=== PATIENT | male | born 1975 | race Caucasian/White ===

== ENCOUNTER 2021-02-22 17:00 | Emergency (ER) | payer BC ==
[2021-02-22] MEDS ORDERED: Ketorolac 60 MG/2 ML SDV IM ONE (17:14)
[2021-02-22] MEDS ORDERED: Acetaminophen/HYDROcodone 325-10 MG Tab PO ONE (17:14)
--- NOTE | 2021-02-22 17:23 | EDM.PDOC ---
ED HPI GENERAL MEDICAL PROBLEM - General Chief Complaint: ENT Problem Stated Complaint: TOOTH PAIN Time Seen by Provider: 02/22/21 17:05 Source of Information: Reports: Patient, Family History Limitations: Reports: No Limitations - History of Present Illness INITIAL COMMENTS - FREE TEXT/NARRATIVE: 46 YO WM PRESENTS TO ER COMPLAINING OF TOOTHACHE WHICH BEGAN 4 DAYS AGO. PT REPORTS PAIN AND MILD SWELLING TO RIGHT MANDIBLE. PT DENIES NECK PAIN, HEADACHE OR FEVER/CHILLS. PT REPORTS HE WAS PRESCRIBED ANTIBIOTICS WHICH HE STARTED TODAY BUT WAS UNABLE TO GET PAIN MEDICATION PROMPTING ER EVALUATION. 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, NSAIDS, Other Medication(s) - Related Data Allergies Allergy/AdvReac Type Severity Reaction Status Date / Time codeine Allergy Vomiting Verified 01/14/18 17:33 Home Meds: Home Meds Omeprazole [Prilosec] 20 mg PO DAILY 03/03/15 [History] Hydrocodone/Acetaminophen [HYDROcodone-Acetaminophen 10-325 MG] 1 each PO Q4HR PRN #10 tablet 02/22/21 [Rx] Past Medical History Oncologic (Cancer) History: Reports: Other (See Below) Other Oncologic History: testicular - Past Surgical History GI Surgical History: Reports: Hernia, Inguinal Social & Family History - Living Situation & Occupation Living situation: Reports: , Other Occupation: Employed ED ROS ENT - Review of Systems Review Of Systems: See Below Constitutional: Reports: No Symptoms HEENT: Reports: Dental Pain Respiratory: Reports: No Symptoms Cardiovascular: Reports: No Symptoms Endocrine: Reports: No Symptoms GI/Abdominal: Reports: No Symptoms : Reports: No Symptoms Musculoskeletal: Reports: No Symptoms Skin: Reports: No Symptoms Neurological: Reports: No Symptoms Psychiatric: Reports: No Symptoms Hematologic/Lymphatic: Reports: No Symptoms Immunologic: Reports: No Symptoms ED EXAM, ENT - Physical Exam Exam: See Below Exam Limited By: No Limitations General Appearance: Alert, WD/WN, Mild Distress Nose: Normal Inspection, Normal Mucousa, No Blood Mouth/Throat: Normal Gums, Normal Lips, Dental Pain, Dental Tenderness. No: Dental Abcess Head: Atraumatic, Normocephalic Neck: Normal Inspection, Supple, Non-Tender, Full Range of Motion Respiratory/Chest: No Respiratory Distress, Lungs Clear, Normal Breath Sounds, No Accessory Muscle Use, Chest Non-Tender Cardiovascular: Normal Peripheral Pulses, Regular Rate, Rhythm, No Edema, No Gallop, No JVD, No Murmur, No Rub Back: Normal Inspection, Full Range of Motion Extremities: Normal Inspection, Normal Range of Motion, Non-Tender, No Pedal Edema, Normal Capillary Refill Neurological: Alert, Oriented, CN II-XII Intact, Normal Cognition, Normal Gait, No Motor/Sensory Deficits Psychiatric: Normal Affect, Normal Mood Skin: Warm, Dry, Intact, Normal Color, No Rash Lymphatic: No Adenopathy Course - Orders/Labs/Meds Meds: Medications Discontinued Medications Generic Name Dose Route Start Last Admin Trade Name Freq PRN Reason Stop Dose Admin Hydrocodone Bitart/Acetaminophen 1 tab 02/22/21 17:14 Acetaminophen/Hydrocodone 325-10 Mg Tab PO 02/22/21 17:15 ONETIME ONE Ketorolac Tromethamine 60 mg 02/22/21 17:14 Ketorolac 60 Mg/2 Ml Sdv IM 02/22/21 17:15 ONETIME ONE Departure - Departure Time of Disposition: 17:23 Disposition: Home, Self-Care 01 Condition: Good Clinical Impression: Pain, dental - Discharge Information Prescriptions: Hydrocodone/Acetaminophen [HYDROcodone-Acetaminophen 10-325 MG] 1 each PO Q4HR PRN #10 tablet PRN Reason: Pain Instructions: Dental Pain Referrals: Amaya Worley MD [Primary Care Provider] - Forms: ED Department Discharge, ED Return to Work/School Form Additional Instructions: 1. DISCHARGE HOME 2. HYDROCODONE 10/325 #10 TAKE 1 TABLET EVERY 4-6 HOURS NEEDED FOR PAIN 3. MOTRIN 600MG EVERY 6 HOURS FOR PAIN 4. AVOID TYLENOL 5. HYDROGEN PEROXIDE ORAL RINSE DIRECTED 6. FOLLOW UP WITH DENTIST SCHEDULED 02/24/2021 7. RETURN TO ER FOR WORSENING SYMPTOMS - Assessment/Plan Assessment:: 1. DENTAL PAIN Plan: 1. DISCHARGE HOME 2. HYDROCODONE 10/325 #10 TAKE 1 TABLET EVERY 4-6 HOURS NEEDED FOR PAIN 3. MOTRIN 600MG EVERY 6 HOURS FOR PAIN 4. AVOID TYLENOL 5. HYDROGEN PEROXIDE ORAL RINSE DIRECTED 6. FOLLOW UP WITH DENTIST SCHEDULED 02/24/2021 7. RETURN TO ER FOR WORSENING SYMPTOMS
[2021-02-22 18:21] VITALS: BP 131/79; PULSE 70
== END 2021-02-22 17:40 | disposition home or self-care (01) ==
LOC: KA.ED 17:00
DX: K08.89 Other specified disorders of teeth and supporting structures (principal); Z88.5 Allergy status to narcotic agent
CPT/HCPCS: 96372; 99283; A9270-GY; J1885